=== PATIENT | male | born 1970 | race African-American/Black ===

== ENCOUNTER 2018-09-01 14:24 | Inpatient (IN) | payer OTHER ==
[2018-09-01 17:11] VITALS: BMI 24.6
--- NOTE | 2018-09-01 20:43 | HP ---
"CIWA Score - Admission Criteria [facility] Guidelines: Admission for Medically Managed Detox: Requires at least one of the followin. CIWA greater than 12 2. Seizures within the past 24 hours 3. Delirium tremens within the past 24 hours 4. Hallucinations within the past 24 hours 5. Acute intervention needed for co occurring medical disorder 6. Acute intervention needed for co occurring psychiatric disorder 7. Severe withdrawal that cannot be handled at a lower level of care (continued vomiting, continued diarrhea, abnormal vital signs) requiring intravenous medication and/or fluids 8. Admission ROS S - HPI Chief Complaint: Here with hx crack/cocaine use. Allergies/Adverse Reactions: Allergies Allergy/AdvReac Type Severity Reaction Status Date / Time No Known Allergies Allergy Verified 09/01/18 19:34 History of Present Illness: Mandated into by the court for treatment of cocaine/crack use disorder. Cocaine/crack use began at age 15. Nicotine use began at age 12. Declines nicotine patch. Will consider prn gum. Denies frequent alcohol use. Denies other substances of abuse. Hx: PPD (+). States was treated w/ medications. States hx depression. Denies thoughts of harming self or others. States was taking Remeron, but not seeing a mental health provider. Encouraged to f/u w/ podiatry and ophthalmology upon discharge. Search Terms: Kevin Payne, 1970 Search Date: 09/01/2018 08:46:37 PM The Drug Utilization Report below displays all of the controlled substance prescriptions, if any, that your patient has filled in the last twelve months. The information displayed on this report is compiled from pharmacy submissions to the Department, and accurately reflects the information as submitted by the pharmacies. This report was requested by: Tanisha Mejia | Reference #: [id number] There are no results for the search terms that you entered. Exam Limitations: No Limitations - Ebola screening Have you traveled outside of the country in the last 21 days: No Have you had contact with anyone from an Ebola affected area: No Have you been sick,other than usual withdrawal symptoms: No Do you have a fever: No - Review of Systems Constitutional: No Symptoms Reported EENT: reports: No Symptoms Reported Respiratory: reports: No Symptoms reported Cardiac: reports: Irregular Heart Rate (States told had an irregular heart beat , but never felt any problems.) GI: reports: No Symptoms Reported : reports: No Symptoms Reported Musculoskeletal: reports: No Symptoms Reported Integumentary: reports: No Symptoms Reported, Change in Hair/Nails (infected toe nail) Neuro: reports: No Symptoms reported Endocrine: reports: No Symptoms Reported Hematology: reports: No Symptoms Reported Psychiatric: reports: Orientated x3, Anxious, Depressed (Denies thoughts of harming self or others.) Patient History - Patient Medical History Hx Sexually Transmitted Disorders: Yes (Chlamydia 1989 - Treated) Hx Human Immunodeficiency Virus (HIV): No (2017) - PPD History Previous Implant?: No Documented Results: Positive w/o proof (States was treated in 1993 for 9 months. ) Implanted On Prior [facility] Admission?: No PPD to be Administered?: No - Smoking Cessation Smoking history: Current every day smoker Have you smoked in the past 12 months: Yes Aproximately how many cigarettes per day: 20 Hx Chewing Tobacco Use: No Initiated information on smoking cessation: Yes 'Breaking Loose' booklet given: 09/01/18 - Substances Abused Crack Route: Smoking Frequency: Daily Amount used: $100 Age of first use: 15 Date of Last Use: 08/03/18 (Was incarcerated) Admission Physical Exam S - Vital Signs Vital Signs: Vital Signs - 24 hr 09/01/18 17:09 Temperature 96.1 F L Pulse Rate 67 Respiratory 18 Rate Blood Pressure 138/79 - Physical General Appearance: Yes: No Apparent Distress, Appropriately Dressed, Anxious HEENTM: Yes: EOMI (Jerking eye movement on (L) ans (R) lateral gaze), Hearing grossly Normal, LUIZ, Pharynx Normal Respiratory: Yes: Lungs Clear, Normal Breath Sounds, No Respiratory Distress Neck: Yes: No masses,lesions,Nodules, Supple Breast: Yes: Breast Exam Deferred Cardiology: Yes: Regular Rhythm, Regular Rate, S1, S2 Abdominal: Yes: Normal Bowel Sounds, Non Tender, Flat, Soft Genitourinary: Yes: Within Normal Limits Back: Yes: Normal Inspection Musculoskeletal: Yes: full range of Motion, Gait Steady Extremities: Yes: Normal Capillary Refill, Normal Range of Motion, Non-Tender Neurological: Yes: developmental writing instructor II-XII NML intact (Jerking eye movement on (L) ans (R) lateral gaze), Fully Oriented, Alert, Motor Strength 5/5, Normal Mood/Affect, Normal Response Integumentary: Yes: Normal Color, Dry, Warm, Other (Thickened, black nail 5th toe. No cuts, flakyness of skin.) Lymphatic: Yes: Within Normal Limits - Diagnostic (1) Nicotine dependence, uncomplicated Current Visit: Yes Status: Chronic Qualifiers: Nicotine product type: cigarettes Qualified Code(s): F17.210 - Nicotine dependence, cigarettes, uncomplicated (2) Cocaine use disorder, moderate, in early remission Current Visit: Yes Status: Acute (3) History of positive PPD Current Visit: Yes Status: Acute (4) Nystagmus Current Visit: Yes Status: Chronic Cleared for Admission [facility] - Detox or Rehab Claeared for Rehab Admission: Yes [facility] Breath Alcohol Content Breath Alcohol Content: 0 Urine Drug Screen - Results Drug Screen Negative: Yes Inpatient Rehab Admission - Initial Determination Are CD services needed?: Yes Free of communicable disease: Yes Not in need of hospitalization: Yes - Rehab Admission Criteria Previous failed treatment: Yes Poor recovery environment: Yes Comorbidities: No Lacks judgement: Yes Patient is meeting Inpatient Rehab admission criteria:: Yes"
[2018-09-01] MEDS ORDERED: IBUPROFEN 400 MG TABLET (FP) PO PRN (21:15)
[2018-09-01] MEDS ORDERED: LOPERAMIDE HCL 2 MG CAPSULE PO PRN (21:15)
[2018-09-01] MEDS ORDERED: P-EPHED 60MG/TRIPROLIDI 2.5MG TABLET PO PRN (21:15)
[2018-09-01] MEDS ORDERED: MAGNESIUM HYDROX 2400MG/30ML ORAL SUSPENSION 30 ML CUP PO PRN (21:15)
[2018-09-01] MEDS ORDERED: MAG HYDROX/AL HYDROX/SIMETH 30 ML UNIT-DOSE CUP PO PRN (21:15)
[2018-09-01] MEDS ORDERED: MAGNESIUM CITRATE 300 ML BOTTLE PO PRN (21:15)
[2018-09-01] MEDS ORDERED: ACETAMINOPHEN 325 MG TABLET (FP) PO PRN (21:15)
[2018-09-01] MEDS ORDERED: NICOTINE POLACRILEX 2 MG GUM BUC PRN (21:15)
[2018-09-01] MEDS ORDERED: MENTHOL/PHENOL 1 EACH UD MM PRN (21:15)
[2018-09-01] MEDS ORDERED: MELATONIN 5 MG TABLETS PO PRN (22:00)
[2018-09-02] MEDS: THIAMINE HCL 100 MG TABLET (FP) PO SCH ×2 (00:09→21:49)
[2018-09-02 10:01] LABS: HEMATOCRIT 43.9 % (35.4-49); HEMOGLOBIN 13.9 GM/dL (11.7-16.9); MCH 27.5 pg (25.7-33.7); MCHC 31.6 g/dl (32.0-35.9); MEAN CELL VOLUME 86.9 fl (80-96); MEAN PLT VOLUME 8.9 fl (7.5-11.1); PLATELET COUNT 250 K/MM3 (134-434); RBC 5.05 M/mm3 (4.00-5.60); RDW 14.3 % (11.9-15.9); WHITE BLOOD COUNT 7.7 K/mm3 (4.0-10.0)
[2018-09-02 10:08] LABS: URINE APPEARANCE CLEAR; URINE BILIRUBIN NEGATIVE (<2.0 mg/dL); URINE COLOR LTYELLOW; URINE GLUCOSE (UA) NEGATIVE (NEGATIVE); URINE KETONE NEGATIVE (NEGATIVE); URINE LEUK ESTERASE NEGATIVE (NEGATIVE); URINE NITRITE NEGATIVE (NEGATIVE); URINE PROTEIN NEGATIVE (NEGATIVE); URINE UROBILINOGEN NEGATIVE mg/dL (0.2-1.0)
[2018-09-02] MEDS: PRENATAL VITAMINS W/ FOLIC ACID TABLET (FP) PO SCH (10:09)
[2018-09-02 10:53] LABS: ALBUMIN 3.7 g/dl (3.4-5.0); ALK PHOS 42 U/L (45-117); ANION GAP 8 MMOL/L (8-16); BILIRUBIN,TOTAL 0.5 mg/dL (0.2-1); BLOOD UREA NITROGEN 11 mg/dL (7-18); CALCIUM 8.7 mg/dL (8.5-10.1); CHLORIDE 108 mmol/L (98-107); CO2 22 mmol/L (21-32); CREATININE 0.9 mg/dL (0.55-1.3); GLUCOSE,RANDOM 75 mg/dL (74-106); POTASSIUM 4.2 mmol/L (3.5-5.1); SGOT/AST 25 U/L (15-37); SGPT/ALT 25 U/L (13-61); SODIUM 139 mmol/L (136-145); TOT PROT 6.5 g/dl (6.4-8.2)
[2018-09-03] MEDS: PRENATAL VITAMINS W/ FOLIC ACID TABLET (FP) PO SCH (10:42)
[2018-09-03] MEDS: THIAMINE HCL 100 MG TABLET (FP) PO SCH (21:53)
[2018-09-04] MEDS: PRENATAL VITAMINS W/ FOLIC ACID TABLET (FP) PO SCH (09:50)
--- NOTE | 2018-09-04 12:25 | HP ---
Psychiatrist Admission - Data Date of interview: 09/04/18 Admission source: Drug court Identifying data: This is the first [facility] admission for this 48 years old single Black male, father of a 30 years old daughter, unemployed with no source of income, homeless Medical History: Significant for history of treatment for positive PPD and chlamydia. Smokes cigarettes 1 ppd Psychiatric History: Reports that he was in [facility] from 1997 to 2013 then from 2014 to January 2018. Reports that he saw a psychiatrist in Mar 2018 and he was diagnosed with depression. Claims his depression stemmed from what has transpired while in [facility] and life circumstances. He was prescribed Prozac up to 60 mg po daily and Remeron 7.5 mg po HS. Told global technical writer that he stopped taking prozac last month because it was not helping but has continued to take Remeron. Denies previous psychiatric hospitalization or suicidal attempt. At present reports feeling well but sleeping poorly Physical/Sexual Abuse/Trauma History: Denies histoory of emotional, physical or sexual abuse as well as DV relationship. No service Vital Signs: Vital Signs - 24 hr 09/04/18 09/04/18 09/04/18 00:30 03:29 06:00 Temperature 97.8 F Pulse Rate 59 L Respiratory 16 16 18 Rate Blood Pressure 116/72 Allergies/Adverse Reactions: Allergies Allergy/AdvReac Type Severity Reaction Status Date / Time No Known Allergies Allergy Verified 09/01/18 19:34 Date of last physical exam: 09/01/18 Concur with the findings of this exam: Yes - Substance Abuse/Tx History Hx Alcohol Use: No Hx Substance Use: Yes Substance Use Type: Cocaine (Started smoking crack cocaine at age 15, consumes $ 100 worth daily. Last smoked on 08/03/18) Hx Substance Use Treatment: Yes (One previous custodial residential treatment at [facility]) Mental Status Exam - Mental Status Exam Alert and Oriented to: Time, Place, Person Cognitive Function: Fair Patient Appearance: Well Groomed Mood: Hopeful, Euthymic Patient Behavior: Cooperative Speech Pattern: Clear Voice Loudness: Normal Thought Process: Intact, Goal Oriented Thought Disorder: Not Present Hallucinations: Denies Suicidal Ideation: Denies Homicidal Ideation: Denies Insight/Judgement: Fair Sleep: Poorly Appetite: Good Muscle strength/Tone: Normal Gait/Station: Normal Psychiatric Findings - Problem List ([place] 1, 2,3) (1) Cocaine dependence Current Visit: Yes Status: Acute (2) Nicotine dependence Current Visit: Yes Status: Chronic (3) Depressive disorder Current Visit: Yes Status: Chronic (4) Substance induced mood disorder Current Visit: Yes Status: Ruled-out (5) History of positive PPD Current Visit: Yes Status: Resolved - Initial Treatment Plan Initial Treatment Plan: 1) Continue Remeron 7.5 mg po HS. 2) Monitor progress
[2018-09-04] MEDS: THIAMINE HCL 100 MG TABLET (FP) PO SCH (21:32)
[2018-09-04] MEDS: MIRTAZAPINE 15 MG TABLET (FP) PO SCH (21:34)
[2018-09-05] MEDS: PRENATAL VITAMINS W/ FOLIC ACID TABLET (FP) PO SCH (11:03)
[2018-09-05] MEDS: THIAMINE HCL 100 MG TABLET (FP) PO SCH (21:53)
[2018-09-05] MEDS: MIRTAZAPINE 15 MG TABLET (FP) PO SCH (21:53)
[2018-09-06] MEDS: PRENATAL VITAMINS W/ FOLIC ACID TABLET (FP) PO SCH (10:15)
[2018-09-06] MEDS: THIAMINE HCL 100 MG TABLET (FP) PO SCH (22:03)
[2018-09-06] MEDS: MIRTAZAPINE 15 MG TABLET (FP) PO SCH (22:03)
[2018-09-07] MEDS: PRENATAL VITAMINS W/ FOLIC ACID TABLET (FP) PO SCH (10:06)
[2018-09-07] MEDS: THIAMINE HCL 100 MG TABLET (FP) PO SCH (21:46)
[2018-09-07] MEDS: MIRTAZAPINE 15 MG TABLET (FP) PO SCH (21:47)
[2018-09-08] MEDS: PRENATAL VITAMINS W/ FOLIC ACID TABLET (FP) PO SCH (10:33)
[2018-09-08] MEDS: MIRTAZAPINE 15 MG TABLET (FP) PO SCH (22:08)
[2018-09-08] MEDS: THIAMINE HCL 100 MG TABLET (FP) PO SCH (22:08)
[2018-09-09] MEDS: PRENATAL VITAMINS W/ FOLIC ACID TABLET (FP) PO SCH (09:58)
[2018-09-09] MEDS: THIAMINE HCL 100 MG TABLET (FP) PO SCH (21:40)
[2018-09-09] MEDS: MIRTAZAPINE 15 MG TABLET (FP) PO SCH (21:40)
[2018-09-10] MEDS: PRENATAL VITAMINS W/ FOLIC ACID TABLET (FP) PO SCH (10:22)
[2018-09-10] MEDS: THIAMINE HCL 100 MG TABLET (FP) PO SCH (22:01)
[2018-09-10] MEDS: MIRTAZAPINE 15 MG TABLET (FP) PO SCH (22:01)
[2018-09-11] MEDS: PRENATAL VITAMINS W/ FOLIC ACID TABLET (FP) PO SCH (13:33)
[2018-09-11] MEDS: MIRTAZAPINE 15 MG TABLET (FP) PO SCH (22:14)
[2018-09-11] MEDS: THIAMINE HCL 100 MG TABLET (FP) PO SCH (22:14)
[2018-09-12] MEDS: PRENATAL VITAMINS W/ FOLIC ACID TABLET (FP) PO SCH (10:33)
[2018-09-12] MEDS: THIAMINE HCL 100 MG TABLET (FP) PO SCH (21:40)
[2018-09-12] MEDS: MIRTAZAPINE 15 MG TABLET (FP) PO SCH (21:40)
[2018-09-13] MEDS: PRENATAL VITAMINS W/ FOLIC ACID TABLET (FP) PO SCH (10:26)
[2018-09-13] MEDS: MIRTAZAPINE 15 MG TABLET (FP) PO SCH (22:08)
[2018-09-13] MEDS: THIAMINE HCL 100 MG TABLET (FP) PO SCH (22:08)
[2018-09-14] MEDS: PRENATAL VITAMINS W/ FOLIC ACID TABLET (FP) PO SCH (10:56)
[2018-09-14] MEDS: MIRTAZAPINE 15 MG TABLET (FP) PO SCH (21:44)
[2018-09-14] MEDS: THIAMINE HCL 100 MG TABLET (FP) PO SCH (21:44)
[2018-09-15] MEDS: PRENATAL VITAMINS W/ FOLIC ACID TABLET (FP) PO SCH (11:29)
[2018-09-15] MEDS: THIAMINE HCL 100 MG TABLET (FP) PO SCH (21:32)
[2018-09-15] MEDS: MIRTAZAPINE 15 MG TABLET (FP) PO SCH (21:33)
[2018-09-16] MEDS: PRENATAL VITAMINS W/ FOLIC ACID TABLET (FP) PO SCH (10:29)
[2018-09-16] MEDS: THIAMINE HCL 100 MG TABLET (FP) PO SCH (21:48)
[2018-09-16] MEDS: MIRTAZAPINE 15 MG TABLET (FP) PO SCH (21:48)
[2018-09-17] MEDS: PRENATAL VITAMINS W/ FOLIC ACID TABLET (FP) PO SCH (10:02)
[2018-09-17] MEDS: MIRTAZAPINE 15 MG TABLET (FP) PO SCH (22:45)
[2018-09-17] MEDS: THIAMINE HCL 100 MG TABLET (FP) PO SCH (22:45)
[2018-09-18] MEDS: PRENATAL VITAMINS W/ FOLIC ACID TABLET (FP) PO SCH (10:10)
[2018-09-18] MEDS: THIAMINE HCL 100 MG TABLET (FP) PO SCH (21:33)
[2018-09-18] MEDS: MIRTAZAPINE 15 MG TABLET (FP) PO SCH (21:33)
[2018-09-19] MEDS: PRENATAL VITAMINS W/ FOLIC ACID TABLET (FP) PO SCH (10:11)
[2018-09-19] MEDS: MIRTAZAPINE 15 MG TABLET (FP) PO SCH (22:16)
[2018-09-19] MEDS: THIAMINE HCL 100 MG TABLET (FP) PO SCH (22:17)
[2018-09-20] MEDS: PRENATAL VITAMINS W/ FOLIC ACID TABLET (FP) PO SCH (10:20)
--- NOTE | 2018-09-20 12:44 | PN ---
Psychiatric Progress Note Vital Signs: Vital Signs Period Temp Pulse Resp BP Sys/Watson Pulse Ox Last 24 Hr 98 F 78 18-18 112/71 Date of Session: 09/20/18 Chief Complaint:: Discharge Note HPI: Patient addressing Cocaine Dependence comorbid with Nicotine Dependence and Depressive Disorder ROS: +PPD were medically managed Current Medications: Active Medications Generic Name Dose Route Start Last Admin Trade Name Freq PRN Reason Stop Dose Admin Acetaminophen 650 mg 09/01/18 21:15 Tylenol - PO Q4H PRN FEVER Al Hydroxide/Mg Hydroxide 30 ml 09/01/18 21:15 Mylanta Oral Suspension - PO Q6H PRN DYSPEPSIA Eucalyptus/Menthol/Phenol/Sorbitol 1 each 09/01/18 21:15 Cepastat Lozenge - MM Q4H PRN SORE THROAT Ibuprofen 400 mg 09/01/18 21:15 Motrin - PO Q6H PRN Pain level 4-6 Loperamide HCl 4 mg 09/01/18 21:15 Imodium - PO Q6H PRN DIARRHEA Magnesium Citrate 300 ml 09/01/18 21:15 Citroma - PO Q48H PRN CONSTIPATION Magnesium Hydroxide 30 ml 09/01/18 21:15 Milk Of Magnesia - PO DAILY PRN CONSTIPATION Melatonin 5 mg 09/01/18 22:00 Melatonin PO HS PRN INSOMNIA Mirtazapine 7.5 mg 09/04/18 22:00 09/19/18 22:16 Remeron - PO 7.5 mg HS DIYA Administration Nicotine Polacrilex 2 mg 09/01/18 21:15 Nicorette Gum - BUC Q2H PRN NICOTINE REPLACEMENT RX Multivit/Folic Acid/Iron 1 tab 09/02/18 10:00 09/19/18 10:11 Vitamins (Sjr) - PO 1 tab DAILY DIYA Administration Pseudoephedrine/Triprolidine 1 combo 09/01/18 21:15 Actifed - PO TID PRN NASAL CONGESTION Thiamine HCl 100 mg 09/01/18 22:00 09/19/18 22:17 Vitamin B1 - PO 100 mg HS DIYA Administration Current Side Effect: No Lab tests ordered: Yes Lab tests reviewed: Yes Provider note:: Patient will complete this program on 09/21/18. He has met his treatment goals and will continue to address his issues in [facility] customer [facility] residential treatment at [facility]. Told manual writer that from his participation in this program, he has learned to identify his triggers and better ways to avoid them. He responded well to Remeron 7.5 mg po HS. Script for 30 days supply of that medication will be electronically transmitted to [facility] at [address] [place] [address]. He is stable for discharge tomorrow Total face to face time:: 35 Mental Status Exam - Mental Status Exam Alert and Oriented to: Time, Place, Person Cognitive Function: Fair Patient Appearance: Well Groomed Mood: Hopeful, Euthymic Affect: Appropriate Patient Behavior: Cooperative Speech Pattern: Clear Voice Loudness: Normal Thought Process: Intact, Goal Oriented Thought Disorder: Not Present Hallucinations: Denies Suicidal Ideation: Denies Insight/Judgement: Fair Sleep: Fair Appetite: Good Muscle strength/Tone: Normal Gait/Station: Normal Psychiatric Treatment Plan - Problem List (5) History of positive PPD Initial treatment plan: Patient will be discharged tomorrow and referred to [facility] for [facility] residential treatment
[2018-09-20] MEDS: MIRTAZAPINE 15 MG TABLET (FP) PO SCH (21:37)
[2018-09-20] MEDS: THIAMINE HCL 100 MG TABLET (FP) PO SCH (21:37)
[2018-09-21 06:54] VITALS: BP 116/80; PULSE 68; TEMP 98.6
[2018-09-21] MEDS: PRENATAL VITAMINS W/ FOLIC ACID TABLET (FP) PO SCH (10:04)
== END 2018-09-21 10:10 | disposition home or self-care (01) | DRG 772 ==
LOC: YASAS 14:24 → Y3W 20:31
PROVIDERS: ADMIT Psychiatry & Neurology Psychiatry; ATTEND Psychiatry & Neurology Psychiatry
PROC: HZ42ZZZ Group Counseling for Substance Abuse Treatment, Cognitive-Behavioral (ICD-10-PCS; principal; 2018-09-01)
DX: F14.20 Cocaine dependence, uncomplicated (principal); F17.210 Nicotine dependence, cigarettes, uncomplicated; F19.24 Other psychoactive substance dependence with psychoactive substance-induced mood disorder; F32.9 Major depressive disorder, single episode, unspecified; H55.00 Unspecified nystagmus; R76.11 Nonspecific reaction to tuberculin skin test without active tuberculosis; Z86.19 Personal history of other infectious and parasitic diseases
CPT/HCPCS: 36415; 71046-TC-FY; 80053; 81003; 85027; 86593